=== PATIENT | male | born 1980 | race Caucasian/White ===

== ENCOUNTER 2022-02-10 02:03 | Emergency (ER) | payer MEDICAID ==
[~2022-02-10] VITALS: Ht 167.6 cm; Wt 59.1 kg
[2022-02-10 02:57] VITALS: BP 100/64
[2022-02-10] MEDS ORDERED: DOXYCYCLINE HYCLATE 100 MG TABLET PO ONE (04:15)
[2022-02-10] MEDS ORDERED: CEPHALEXIN MONOHYDRATE 500 MG CAPSULE PO ONE (04:15)
[2022-02-10] MEDS ORDERED: HYDROGEN PEROXIDE 118 ML SOLUTION TP ONE (04:15)
[2022-02-10] MEDS ORDERED: BACITRACIN 28 GM OINTMENT TP ONE (04:15)
[2022-02-10] MEDS ORDERED: DOXY-354 PO (04:31)
[2022-02-10] MEDS ORDERED: CEPH-558 PO (04:31)
[2022-02-10] MEDS ORDERED: IBUP-1554 PO (04:31)
[2022-02-10] MEDS ORDERED: BACI28OI29 TP (04:31)
== END 2022-02-10 04:53 | disposition home or self-care (01) ==
LOC: EMS 02:05
DX: L02.415 Cutaneous abscess of right lower limb (principal); S60.011A Contusion of right thumb without damage to nail, initial encounter; Z59.00 Homelessness unspecified; W57.XXXA Bitten or stung by nonvenomous insect and other nonvenomous arthropods, initial encounter; Y93.89 Activity, other specified; Y92.89 Other specified places as the place of occurrence of the external cause; Y99.8 Other external cause status
CPT/HCPCS: 99284; Z7502; Z7610